=== PATIENT | male | born 1995 | race African-American/Black ===

== ENCOUNTER 2017-12-17 11:08 | Emergency (ER) | payer MEDICAID, OTHER ==
[~2017-12-17] VITALS: Ht 182.9 cm; Wt 97.0 kg
[2017-12-17 13:45] VITALS: BP 130/76
== END 2017-12-17 13:55 | disposition home or self-care (01) ==
LOC: ER 12:47
DX: M79.1 Myalgia (principal); R06.02 Shortness of breath; R09.89 Other specified symptoms and signs involving the circulatory and respiratory systems; R07.89 Other chest pain; R05 Cough; F12.10 Cannabis abuse, uncomplicated
CPT/HCPCS: 99283